=== PATIENT | male | born 1980 | race African-American/Black ===

== ENCOUNTER 2020-06-18 09:46 | Emergency (ER) | payer SELFPAY ==
[~2020-06-18] VITALS: Ht 175.3 cm; Wt 74.8 kg
[2020-06-18 09:54] VITALS: BP 134/92
[2020-06-18] MEDS ORDERED: AZEL6DRO5 EACHEYE (10:10)
--- NOTE | 2020-06-18 10:38 | NUR ---
Patient discharged to home in stable condition. Written and verbal after care instructions given. Patient verbalizes understanding of instruction.
== END 2020-06-18 10:39 | disposition home or self-care (01) ==
LOC: ER 09:57
DX: H10.13 Acute atopic conjunctivitis, bilateral (principal)